=== PATIENT | male | born 1995 | race Hispanic/Latino ===

== ENCOUNTER 2017-05-12 01:09 | Emergency (ER) | payer OTHER ==
[2017-05-12 01:25] VITALS: BP 116/69; PULSE 105; RESP 18; TEMP 98.3; O2SAT 100
[2017-05-12] MEDS ORDERED: Sodium Chloride 0.9% 1,000 ML IV STA (01:41)
[2017-05-12 02:11] LABS: BASO # 0.1 K/uL (0.0-0.2); BASO % 0.3 % (0.0-2.0); EOS % 0.2 % (0.0-4.0); LYMPH # 0.4 K/uL (1.0-4.3); LYMPH % 2.2 % (20.0-40.0); MEAN CELL VOLUME 85.8 fl (80.0-94.0); MEAN CORPUSCULAR HGB CONC 33.8 g/dL (33.0-37.0); MEAN PLATELET VOLUME 8.8 fl (7.2-11.7); MONO % 5.2 % (0.0-10.0); NEUT # 18.4 K/uL (1.8-7.0); NEUT % 92.1 % (50.0-75.0); NRBC % 0.7 % (0.0-0.0); PLATELET COUNT 218 K/uL (130-400); RED CELL DISTRIBUTION WIDTH 12.4 % (11.5-14.5)
--- NOTE | 2017-05-12 02:17 | ED PDOC ---
HPI: Abdomen Time Seen by Provider: 05/12/17 01:29 Chief Complaint (Nursing): GI Problem Chief Complaint (Provider): GI Problem History Per: Patient History/Exam Limitations: no limitations Onset/Duration Of Symptoms: Hrs (x7) Current Symptoms Are (Timing): Still Present Additional Complaint(s): Abhilash Barillas is a 21 year old male that presents to the ED with a chief complaint of vomiting and lightheadedness. Patient reports that at 6 PM he was eating steak, fish, and crabcakes, and the at 7 PM began to notice nausea and abdominal pain. He states that he has been vomiting for every 20 minutes since then, which is non-bloody and non-bilious. He states that his ED visit was prompted because he began to feel lightheaded and dizzy, as though he was going to pass out. Past Medical History Reviewed: Historical Data, Nursing Documentation, Vital Signs Vital Signs: Last Vital Signs Temp 98.3 F 05/12/17 01:22 Pulse 105 H 05/12/17 01:22 Resp 18 05/12/17 01:22 BP 116/69 05/12/17 01:22 Pulse Ox 100 05/12/17 02:19 - Medical History PMH: No Chronic Diseases - Family History Family History: States: Unknown Family Hx - Home Medications Home Medications: Ambulatory Orders Medication Instructions Recorded Ondansetron [Zofran] 4 mg PO Q8H #12 tab 05/12/17 - Allergies Allergies/Adverse Reactions: Allergies Allergy/AdvReac Type Severity Reaction Status Date / Time No Known Allergies Allergy Verified 05/12/17 01:22 Review of Systems Gastrointestinal: Positive for: Vomiting Neurological: Positive for: Dizziness, Other (lightheadedness) Physical Exam - Reviewed Nursing Documentation Reviewed: Yes Vital Signs Reviewed: Yes - Physical Exam Appears: Positive for: Non-toxic, No Acute Distress Head Exam: Positive for: ATRAUMATIC, NORMOCEPHALIC Skin: Positive for: Normal Color, Warm Eye Exam: Positive for: Normal appearance, EOMI, PERRL ENT: Positive for: Other (dry mucous membranes). Negative for: Normal ENT Inspection Cardiovascular/Chest: Positive for: Regular Rate, Rhythm. Negative for: Murmur Respiratory: Positive for: Normal Breath Sounds. Negative for: Wheezing Gastrointestinal/Abdominal: Positive for: Normal Exam, Soft. Negative for: Tenderness Back: Positive for: Normal Inspection. Negative for: L CVA Tenderness, R CVA Tenderness Extremity: Positive for: Normal ROM. Negative for: Tenderness, Swelling Neurologic/Psych: Positive for: Alert, Oriented. Negative for: Motor/Sensory Deficits - Laboratory Results Result Diagrams: 05/12/17 02:00 05/12/17 02:00 - ECG O2 Sat by Pulse Oximetry: 100 (RA) Pulse Ox Interpretation: Normal Medical Decision Making Medical Decision Making: Impression: Gastroenteritis/Dehydration Plan: * CMP * CBC * Lactic Acid * Lipase * Toradol 15 mg IV * Zofran 4 mg IV * NaCl 1000 mLs at 1000 mLs/hr * Reevaluation 3:22 Patient reports feeling significantly better, is tolerating PO, and is no longer complaining of abdominal pain. Return precautions were discussed, such as fevers, vomiting despite medication, or blood in either stool or vomit. Will follow up as an outpatient. Patient given Rx for Zofran and is stable for discharge home. Scribe Attestation: Documented by Tiffanie Huang, acting as a scribe for Eric Hernandez MD. Provider Scribe Attestation: All medical record entries made by the Scribe were at my direction and personally dictated by me. I have reviewed the chart and agree that the record accurately reflects my personal performance of the history, physical exam, medical decision making, and the department course for this patient. I have also personally directed, reviewed, and agree with the discharge instructions and disposition. Disposition - Clinical Impression Clinical Impression: Gastroenteritis - Patient ED Disposition Is Patient to be Admitted: No - Disposition Referrals: Wilberto Rainey [Outside] Disposition: Routine/Home Disposition Time: 03:22 Condition: IMPROVED Prescriptions: Ondansetron [Zofran] 4 mg PO Q8H #12 tab Instructions: Dehydration (DC), Gastroenteritis (ED) Forms: [employer] ([place])
[2017-05-12 02:18] LABS: ALB/GLOB RATIO 1.6 (1.0-2.1); ALKALINE PHOSPHATASE 68 U/L (38-126); ALT/SGPT 40 U/L (21-72); AST/SGOT 30 U/L (17-59); BILIRUBIN,TOTAL 1.5 mg/dl (0.2-1.3); BLOOD UREA NITROGEN 18 mg/dl (9-20); CALCIUM 10.1 mg/dL (8.4-10.2); CARBON DIOXIDE 25 mmol/L (22-30); CHLORIDE 101 mmol/L (98-107); GFR AFRICAN-AMERICAN > 60; GLUCOSE,RANDOM 124 mg/dL (75-110); LIPASE 56 U/L (23-300); POTASSIUM 4.3 MMOL/L (3.6-5.0); SODIUM 141 mmol/l (132-148); TOTAL PROTEIN 8.8 G/DL (6.3-8.2)
[2017-05-12 03:12] LABS: NEUTROPHIL 90 % (42-75); REACTIVE LYMPHOCYTES 1 % (0-0); TOTAL CELLS COUNTED 100
== END 2017-05-12 03:37 | disposition home or self-care (01) ==
LOC: H.ER 01:09
DX: K52.9 Noninfective gastroenteritis and colitis, unspecified (principal); E86.0 Dehydration
CPT/HCPCS: 80053; 83605; 83690; 85025; 96361; 96374; 96375; 99283; J1885; J2405; J7040